=== PATIENT | male | born 1980 | race Caucasian/White ===

== ENCOUNTER → 2021-06-16 | Outpatient (CLI) | payer OTHER ==
[~2021-06-16] MED LIST: BENTYL 10MG CAP10 MG PO; CYCLOBENZAPRINE5 MG PO; DICYCLOMINE HCL20 MG PO; ESCITALOPRAM OX10 MG PO; IBUPROFEN600 MG PO; K-DUR TAB 20 M20 MEQ PO; PROTONIX 40 MG40 M1 PO; ZOFRAN 4 MG TAB4 MG PO; ZOFRAN ODT 4 MG4 MG PO; ZOFRAN4 MG PO
== END ==
LOC: RAD 15:06
DX: M54.50 Low back pain, unspecified (principal)
CPT/HCPCS: 72110

== ENCOUNTER 2021-09-14 22:00 | Emergency (ER) | payer OTHER ==
[2021-09-14] MEDS ORDERED: IBUPROFEN800 MG PO (22:52)
== END 2021-09-14 23:11 | disposition home or self-care (01) ==
LOC: ER1 22:00
DX: S16.1XXA Strain of muscle, fascia and tendon at neck level, initial encounter (principal); V49.9XXA Car occupant (driver) (passenger) injured in unspecified traffic accident, initial encounter
CPT/HCPCS: 70450; 72125; 72128; 72131; 99284